=== PATIENT | male | born 1990 | race Two or more races ===

== ENCOUNTER 2023-02-10 12:47 | Emergency (ER) | payer OTHER ==
[~2023-02-10] VITALS: Ht 190.5 cm; Wt 112.6 kg
[2023-02-10 12:48] VITALS: TEMP 97.8
[2023-02-10] MEDS ORDERED: NAPR220C14 PO (13:03)
[2023-02-10 16:00] VITALS: BP 146/88; O2SAT 98
== END 2023-02-10 17:26 | disposition home or self-care (01) ==
LOC: M ED 12:47
DX: S86.011A Strain of right Achilles tendon, initial encounter (principal); W22.8XXA Striking against or struck by other objects, initial encounter; Y92.512 Supermarket, store or market as the place of occurrence of the external cause; Y93.89 Activity, other specified; Y99.0 Civilian activity done for income or pay; M51.36 Other intervertebral disc degeneration, lumbar region; F17.200 Nicotine dependence, unspecified, uncomplicated; Z88.0 Allergy status to penicillin; Z88.8 Allergy status to other drugs, medicaments and biological substances

== ENCOUNTER → 2023-12-03 | Outpatient (REF) | payer OTHER ==
[~2023-12-03] MED LIST: NAPR220C14 PO
== END ==
LOC: M SFHCPLAZ 16:35
PROVIDERS: ATTEND Student in an Organized Health Care Education/Training Program
DX: Z53.9 Procedure and treatment not carried out, unspecified reason (principal)

== ENCOUNTER 2024-02-01 15:01 | Emergency (ER) | payer OTHER ==
[~2024-02-01] VITALS: Ht 190.5 cm; Wt 127.3 kg
[2024-02-01] MEDS ORDERED: VARE1TAB7 (15:23)
[2024-02-01] MEDS ORDERED: IRBE75TA11 (15:23)
[2024-02-01] MEDS ORDERED: PRED20TA PO (16:57)
[2024-02-01] MEDS ORDERED: CLEO300C2 PO (16:57)
[2024-02-01 17:03] VITALS: BP 129/90; TEMP 97.7; O2SAT 98
[2024-02-01] MEDS: CLINDAMYCIN 150MG CAPSULE PO ONE (17:03)
[2024-02-01] MEDS: predniSONE 20 MG TAB PO ONE (17:03)
== END 2024-02-01 17:08 | disposition home or self-care (01) ==
LOC: EDBD 15:01 → M ED 15:01
DX: S60.562A Insect bite (nonvenomous) of left hand, initial encounter (principal); W57.XXXA Bitten or stung by nonvenomous insect and other nonvenomous arthropods, initial encounter; Y92.9 Unspecified place or not applicable; Y93.9 Activity, unspecified; Y99.0 Civilian activity done for income or pay; Z88.1 Allergy status to other antibiotic agents; Z88.8 Allergy status to other drugs, medicaments and biological substances; F17.200 Nicotine dependence, unspecified, uncomplicated
CPT/HCPCS: 99284; J7512

== ENCOUNTER → 2025-06-10 | Outpatient (REF) ==
[~2025-06-10] MED LIST changes: +CLEO300C2 PO; +IRBE75TA11; +PRED20TA PO; +VARE1TAB7
== END ==
LOC: M LAB 13:51
PROVIDERS: ATTEND Family Medicine
DX: Z01.89 Encounter for other specified special examinations (principal)

== ENCOUNTER 2025-08-29 16:50 | Emergency (ER) | payer BC, OTHER ==
[~2025-08-29] VITALS: Ht 190.5 cm; Wt 110.3 kg
[2025-08-29] MEDS ORDERED: LOSA25TA13 PO (17:04)
[2025-08-29 18:01] LABS: BASO # 0.1 10^3/uL (0.0-0.2); BASO % 1.0 % (0.0-1.0); EOS # 0.1 10^3/uL (0.0-0.5); EOS % 1.2 % (0.0-3.0); LYMPH # 2.9 10^3/uL (1.5-5.0); LYMPH % 25.7 % (24.0-44.0); MONO # 1.1 10^3/uL (0.0-0.8); MONO % 9.3 % (2.0-8.0); NEUTROPHILS # 7.1 10^3/uL (1.5-8.5); NEUTROPHILS % 62.4 % (36.0-66.0); PLATELET COUNT, AUTOMATED 311 10^3/uL (150-450)
[2025-08-29 18:13] LABS: ALT/SGPT 104.0 U/L (7.0-40); AST/SGOT 114.0 U/L (<34); C REACTIVE PROTEIN QUANTITATIV < 0.50 MG/DL (<1.0); CALCIUM LEVEL 9.6 MG/DL (8.5-10.1); CARBON DIOXIDE LEVEL 22 MMOL/L (20-31); CHLORIDE LEVEL 105 MMOL/L (98-107); CREATININE FOR GFR 0.79 MG/DL (0.70-1.30); GLOMERULAR FILTRATION RATE > 90.0 (>60); POTASSIUM SERUM 3.8 MMOL/L (3.5-5.1); SODIUM LEVEL 138 MMOL/L (136-145)
[2025-08-29] MEDS ORDERED: ISOVUE-370 76% 100 ML VIAL As Ordered ONE (18:16)
[2025-08-29] MEDS: ONDANSETRON 4MG/2ML VIAL IV ONE (19:17)
[2025-08-29] MEDS: KETOROLAC 30 MG/ML 1 ML VIAL IV ONE (22:40)
[2025-08-29] MEDS: NS (Normal Saline) 0.9% 1,000 ML IV ONE (22:40)
[2025-08-29 23:05] VITALS: BP 135/80
[2025-08-29 23:45] VITALS: TEMP 98.5; O2SAT 96
== END 2025-08-29 23:50 | disposition home or self-care (01) ==
LOC: M ED 16:50
DX: R74.01 Elevation of levels of liver transaminase levels (principal); K76.0 Fatty (change of) liver, not elsewhere classified; R10.9 Unspecified abdominal pain; R19.7 Diarrhea, unspecified; I10 Essential (primary) hypertension; K57.92 Diverticulitis of intestine, part unspecified, without perforation or abscess without bleeding; Z88.0 Allergy status to penicillin; Z88.8 Allergy status to other drugs, medicaments and biological substances
CPT/HCPCS: 74177; 80048; 80076; 83690; 85025; 85652; 86140; 87040; 87428; 96361; 96374; 96375; 99284; J1885; J2405; Q9967